=== PATIENT | female | born 1980 | race African-American/Black ===

== ENCOUNTER → 2021-04-20 | Outpatient (CLI) | payer BC ==
[~2021-04-20] MED LIST: APAP500 PO; BENZOCAINE59.7 GM SPRAY; COLACE100 MG PO; HYDROCHLOROTHIA25 M2 PO; IBUPROFEN200 M2 PO; LABETALOL 100100 MG PO; LANOLIN ANHYDROU1 GM TOP; LOPRESSOR100 M1 PO; LOPRESSOR25 PO; LORTAB 5 MG/5001 TA1 PO; PRENATAL FORMU1 EAC3; VITAMIN D-32000 UNIT; ZYRTEC 10 MG TA10 M1
== END ==
LOC: SJCVCIMAG 08:06
PROVIDERS: ATTEND Internal Medicine Cardiovascular Disease
DX: I37.1 Nonrheumatic pulmonary valve insufficiency (principal); R94.31 Abnormal electrocardiogram [ECG] [EKG]; R06.00 Dyspnea, unspecified; I10 Essential (primary) hypertension; Z88.1 Allergy status to other antibiotic agents; Z88.2 Allergy status to sulfonamides; Z88.8 Allergy status to other drugs, medicaments and biological substances; Z79.899 Other long term (current) drug therapy

== ENCOUNTER 2021-04-29 23:22 | Emergency (ER) | payer BC ==
[~2021-04-29] VITALS: Ht 157.5 cm; Wt 79.4 kg
[2021-04-29] MEDS ORDERED: BENICAR20 MG PO (23:33)
[2021-04-29] MEDS ORDERED: CARVEDILOL25 MG PO (23:34)
[2021-04-30 00:02] VITALS: BP 157/97
--- NOTE | 2021-04-30 13:42 | EKG ---
[place] [address] [address] [employer] [place] [address] ELECTROCARDIOGRAM REPORT Name: CHRISTIN PEDERSEN Room #: [facility] JOSSELIN Simmons#: [id number] Admission: 04/29/21 Attend Phys: Discharge: 04/30/21 Date of : 78 Report #: [id number] [facility] ED Test Date: 2021-04-29 Test Time: 23:53:33 Pat Name: CHRISTIN PEDERSEN Department: Room: Gender: F [employer]: : 1980 Requested By: Errol Painter Order Number: [id number] MD: Rashad Mccollum Measurements Intervals [place] Rate: 54 P: -20 WI: 123 QRS: 0 QRSD: 97 T: 14 QT: 422 QTc: 400 Interpretive Statements Sinus bradycardia Otherwise normal tracing Compared to ECG 03/03/2015 14:32:49 No significant change was found Electronically Signed On 04-30-2021 13:42:04 CDT by Rashad Mccollum [email or web address] <ELECTRONICALLY SIGNED> By: Rashad Mccollum MD, [facility] 04/30/21 1342 [id number] Rashad Mccollum MD, FAC /EPI
== END 2021-04-30 00:02 | disposition home or self-care (01) ==
LOC: ER 23:22
DX: I10 Essential (primary) hypertension (principal); Z88.1 Allergy status to other antibiotic agents; Z88.5 Allergy status to narcotic agent; Z88.2 Allergy status to sulfonamides; Z91.018 Allergy to other foods; Z79.899 Other long term (current) drug therapy